=== PATIENT | female | born 1980 | race Two or more races ===

== ENCOUNTER 2023-09-17 08:08 | Emergency (ER) | payer OTHER ==
[2023-09-17] MEDS ORDERED: IBUPROFEN 600 MG TABLET (FP) PO ONE ×2 (08:25→08:44)
[2023-09-17] MEDS ORDERED: AMOX TR/POT CLAV 875MG/125MG TABLETS (FP) PO ONE (08:25)
[2023-09-17] MEDS ORDERED: AMOX TR/POT CLAV 875MG/125MG TABLETS (FP) ONE (08:44)
[2023-09-17 08:51] VITALS: BP 157/90; PULSE 86; RESP 20; TEMP 98.4
== END 2023-09-17 08:59 | disposition home or self-care (01) ==
LOC: FER 08:08
DX: H66.91 Otitis media, unspecified, right ear (principal); H92.01 Otalgia, right ear
CPT/HCPCS: 99283-25

== ENCOUNTER 2023-12-21 23:22 | Emergency (ER) | payer OTHER ==
[2023-12-21 23:36] VITALS: BP 152/86; PULSE 82; RESP 16; TEMP 99.1; BMI 35.1
[2023-12-22] MEDS ORDERED: ONDANSETRON 4 MG/2 ML VIAL ONE (01:22)
[2023-12-22] MEDS ORDERED: ACETAMINOPHEN INJECTION 100 ML IVPB ONE (01:22)
[2023-12-22] MEDS: ONDANSETRON 4 MG/2 ML VIAL IVPUSH ONE (01:26)
[2023-12-22] MEDS: SODIUM CHLORIDE 1,000 ML IV STA (01:26)
[2023-12-22] MEDS: ACETAMINOPHEN 1000 MG/100 ML BAG IVPB ONE (01:26)
[2023-12-22 03:30] LABS: BASO % 0.6 % (0-2.0); EOS % 2.1 % (0-4.5); HEMOGLOBIN 11.9 GM/dL (10.7-15.3); LYMPH % 26.2 % (8-40); MCH 25.3 pg (25.7-33.7); MCHC 33.1 g/dl (32.0-36.0); MEAN CELL VOLUME 76.4 fl (80-96); MEAN PLT VOLUME 7.6 fl (7.5-11.1); MONO % 5.4 % (3.8-10.2); NEUT % 65.7 % (42.8-82.8); PLATELET COUNT 352 10^3/uL (134-434); RBC 4.72 M/mm3 (3.60-5.2); RDW 14.7 % (11.6-15.6)
[2023-12-22 04:09] LABS: POTASSIUM 4.7 mmol/L (3.5-5.1)
[2023-12-22 04:10] LABS: ALBUMIN 3.7 g/dl (3.4-5.0); BLOOD UREA NITROGEN 13.6 mg/dL (7-18); CALCIUM 8.4 mg/dL (8.5-10.1)
[2023-12-22 04:13] LABS: CREATININE 0.8 mg/dL (0.55-1.3)
[2023-12-22 04:19] LABS: BILIRUBIN,TOTAL 0.4 mg/dL (0.2-1); TOT PROT 7.8 g/dl (6.4-8.2)
[2023-12-22] MEDS ORDERED: FAMOTIDINE 20 MG/50 ML IVPB 20 MG/50 ML MG IVPB ONE (04:41)
[2023-12-22] MEDS: FAMOTIDINE 20 MG/50 ML IVPB 20 MG/50 ML MG IVPB ONE (04:45)
== END 2023-12-22 05:44 | disposition home or self-care (01) ==
LOC: FER 23:22
PROC: 3E033GC Introduction of Other Therapeutic Substance into Peripheral Vein, Percutaneous Approach (ICD-10-PCS; principal; 2023-12-22)
PROC: 3E033NZ Introduction of Analgesics, Hypnotics, Sedatives into Peripheral Vein, Percutaneous Approach (ICD-10-PCS; 2023-12-22)
PROC: 3E033GC Introduction of Other Therapeutic Substance into Peripheral Vein, Percutaneous Approach (ICD-10-PCS; 2023-12-22)
DX: R10.13 Epigastric pain (principal); R11.2 Nausea with vomiting, unspecified; K52.9 Noninfective gastroenteritis and colitis, unspecified
CPT/HCPCS: 36415; 80053; 85025; 99284-25; J0131